=== PATIENT | male | born 1960 | race Caucasian/White ===

== ENCOUNTER 2024-06-27 22:33 | Inpatient (IN) ==
--- NOTE | 2024-06-27 23:30 | DR.SOBA ---
HPI Time Seen Time Seen by Provider: 06/27/24 23:26 Primary Care Physician Primary Care Physician: ERIK CHONG Complaints Chief Complaint Doctors Comments: Patient was discharged from [facility] today with COPD exacerbation. They came okay because they stated that he was not getting better and he is still having shortness of breath and was still w heezing. Chief Complaint:: PT AMBULATORY IN ED WITH C/O SHORTNESS OF BREATH X 3 WEEKS. PT STATES HE JUST GOT OUT THE HOSPITAL IN [place] TODAY. STATES HE HAS GOTTEN WORSE SINCE GETTING HOME. WAS DX WITH COPD. COVID-19 Coronavirus risk:travel/contact w/high risk person: No Has patient experienced Coronavirus symptoms: Yes Coronavirus symptoms experienced: Shortness of Breath Source History Provided: Patient and Family Member Mode of Arrival Mode of Arrival: Ambulatory Timing Onset of Chief Complaint: 06/06/24 PMH PMH Past Medical History: Yes Past Medical History: COPD, GERD and Hypertension Past Surgical History: Yes Surgical History: Appendectomy and Ortho Surgery Past Surgical History Comment: RIGHT SHOULDER BACK STIMULATOR Family History History of Family Medical Conditions: Yes Family Medical History: Cancer and Hypertension Social History Does patient currently use any type of tobacco product: No Have you used tobacco products in the last 12 months: No Type of Tobacco Use: None Does any household member use tobacco: No Alcohol Use: None Do you use any recreational Drugs:: No Lives With: Spouse Lives Where: Home Travel Risk Coronavirus risk:travel/contact w/high risk person: No Has patient experienced Coronavirus symptoms: Yes Coronavirus symptoms experienced: Shortness of Breath Infectious screening In the last 2 months have you had wt loss of >10#?: NO Have you had fever, night sweats or hemotysis?: No Have you traveled outside the country in the last 6 months?: No Isolation: Standard ROS Review of Systems Constitutional: Other (shortness of breath) Eyes: No Symptoms Reported ENTM: No Symptoms Reported Respiratoy: Non-Productive Cough and Short of Breath Cardiovascular: No Symptoms Reported Gastrointestinal/Abdominal: No Symptoms Reported Genitourinary: No Symptoms Reported Neurological: No Symptoms Reported Musculoskeletal: No Symptoms Reported Integumentary: No Symptoms Reported Hematologic/Lymphatic: No Symptoms Reported Endocrine: No Symptoms Reported Psychiatric: No Symptoms Reported PE Vital Signs Vitals: Vital Signs Pulse Rate 104 Pulse Rate 100 Pulse Rate 104 Pulse Rate 98 Pulse Rate 98 Pulse Rate 106 Pulse Rate 111 Pulse Rate 100 Pulse Rate 102 Pulse Rate 104 Pulse Rate 103 Pulse Rate 104 Pulse Rate 98 Pulse Rate 100 Pulse Rate 102 Pulse Rate 97 Pulse Rate 102 Pulse Rate 97 Pulse Rate 100 Pulse Rate 98 Pulse Rate 99 Pulse Rate 99 Pulse Rate 100 Pulse Rate 99 Pulse Rate 91 Pulse Rate 101 Pulse Rate 93 Pulse Rate 96 Pulse Rate 97 Pulse Rate 98 Pulse Rate 95 Pulse Rate 100 Pulse Rate 103 Pulse Rate 96 Pulse Rate 96 Pulse Rate 100 Pulse Rate 100 Pulse Rate 96 Pulse Rate 108 Pulse Rate 98 Pulse Rate 95 Pulse Rate 99 Pulse Rate 101 Pulse Rate 97 Pulse Rate 100 Pulse Rate 96 Pulse Rate 101 Pulse Rate 101 Pulse Rate 102 Pulse Rate 101 Pulse Rate 100 Pulse Rate 103 Pulse Rate 103 Pulse Rate 104 Pulse Rate 107 Pulse Rate 108 Pulse Rate 106 Respiratory Rate 25 Respiratory Rate 30 Respiratory Rate 31 Respiratory Rate 32 Respiratory Rate 27 Respiratory Rate 29 Respiratory Rate 26 Respiratory Rate 40 Respiratory Rate 38 Respiratory Rate 42 Respiratory Rate 29 Respiratory Rate 33 Respiratory Rate 32 Respiratory Rate 36 Respiratory Rate 39 Respiratory Rate 39 Respiratory Rate 30 Respiratory Rate 23 Respiratory Rate 22 Respiratory Rate 23 Respiratory Rate 21 Respiratory Rate 21 Respiratory Rate 26 Respiratory Rate 22 Respiratory Rate 23 Respiratory Rate 24 Respiratory Rate 26 Respiratory Rate 30 Respiratory Rate 26 Respiratory Rate 32 Respiratory Rate 34 Respiratory Rate 45 Respiratory Rate 35 Respiratory Rate 32 Respiratory Rate 32 Respiratory Rate 31 Respiratory Rate 29 Respiratory Rate 30 Respiratory Rate 25 Respiratory Rate 30 Respiratory Rate 28 Respiratory Rate 31 Respiratory Rate 35 Respiratory Rate 23 Respiratory Rate 33 Respiratory Rate 26 Respiratory Rate 18 Respiratory Rate 32 Respiratory Rate 26 Respiratory Rate 28 Respiratory Rate 29 Respiratory Rate 30 Respiratory Rate 21 Respiratory Rate 22 Blood Pressure [Left Arm] 156/72 Blood Pressure [Left Arm] 196/88 Blood Pressure 139/68 Blood Pressure 135/67 Blood Pressure 123/68 Blood Pressure 138/80 Blood Pressure 156/72 Blood Pressure 156/72 Blood Pressure 169/84 Blood Pressure 152/74 Blood Pressure 153/72 Blood Pressure 150/71 Blood Pressure 151/72 Blood Pressure 157/73 Blood Pressure 154/73 Blood Pressure 149/72 Blood Pressure 136/66 Blood Pressure 160/72 Blood Pressure 163/87 Blood Pressure 156/78 Blood Pressure 158/84 Blood Pressure 163/77 Blood Pressure 156/72 Blood Pressure 156/72 Blood Pressure 196/88 Blood Pressure 222/102 Blood Pressure 222/102 Blood Pressure 210/88 Blood Pressure 216/98 Blood Pressure 211/93 Blood Pressure 207/106 Blood Pressure 196/87 Blood Pressure 196/87 Blood Pressure 215/92 Blood Pressure 200/88 Blood Pressure 217/99 Blood Pressure 217/99 O2 Sat by Pulse Oximetry 96 O2 Sat by Pulse Oximetry 96 O2 Sat by Pulse Oximetry 96 O2 Sat by Pulse Oximetry 98 O2 Sat by Pulse Oximetry 97 O2 Sat by Pulse Oximetry 96 O2 Sat by Pulse Oximetry 97 O2 Sat by Pulse Oximetry 97 O2 Sat by Pulse Oximetry 97 O2 Sat by Pulse Oximetry 97 O2 Sat by Pulse Oximetry 98 O2 Sat by Pulse Oximetry 99 O2 Sat by Pulse Oximetry 99 O2 Sat by Pulse Oximetry 99 O2 Sat by Pulse Oximetry 99 O2 Sat by Pulse Oximetry 99 O2 Sat by Pulse Oximetry 100 O2 Sat by Pulse Oximetry 99 O2 Sat by Pulse Oximetry 100 O2 Sat by Pulse Oximetry 100 O2 Sat by Pulse Oximetry 99 O2 Sat by Pulse Oximetry 98 O2 Sat by Pulse Oximetry 98 O2 Sat by Pulse Oximetry 99 O2 Sat by Pulse Oximetry 98 O2 Sat by Pulse Oximetry 98 O2 Sat by Pulse Oximetry 98 O2 Sat by Pulse Oximetry 97 O2 Sat by Pulse Oximetry 97 O2 Sat by Pulse Oximetry 97 O2 Sat by Pulse Oximetry 97 O2 Sat by Pulse Oximetry 97 O2 Sat by Pulse Oximetry 94 O2 Sat by Pulse Oximetry 97 O2 Sat by Pulse Oximetry 95 O2 Sat by Pulse Oximetry 99 O2 Sat by Pulse Oximetry 97 O2 Sat by Pulse Oximetry 96 O2 Sat by Pulse Oximetry 96 O2 Sat by Pulse Oximetry 96 O2 Sat by Pulse Oximetry 94 O2 Sat by Pulse Oximetry 96 General Limitations: Physical Limitation (due to hypoxia when ambulating ) General Appearance: In Distress (mocerate distress) Head Head Exam: Normal Inspection, Atraumatic and Normocephalic Eyes Eye exam: Normal Appearance, PERRL and EOMI ENT ENT Exam: Normal Exam and Normal Oropharynx Neck Neck Exam: Normal Inspection Chest Chest Inspection: Normal Inspection Respiratory Respiratory Exam: Prolonged Expiratory Phase and Other (wheezing and rhonchi) Cardiovascular Cardiovascular Exam: Regular Rate Abdominal Exam Abdominal Exam: Normal Inspection Extremities Extremities Exam: Normal Inspection Back Back Exam: Normal Inspection and Full ROM Neurologic Neurological Exam: Alert, Oriented X3 and CN II-XII Intact Psychiatric Psychiatric Exam: Agitated and Anxious Skin Skin Exam: Warm, Dry and Intact MDM Differential Diagnosis Differential Diagnosis: COPD (exacerbation) and Other (hypoxia) COURSE Treatment Treatment: Initially patient remained somewhat stable on oxygen at 3 to 4 L/min she remained O2 sat of 95% but since she was not sent home on any oxygen from the previous hospital we did try to do a walking oxygen desat test and the patient did desaturate to 89% and his pCO2 was 67. This point ooziness are that the patient need to be on BiPAP so the patient was placed on BiPAP and we continue to monitor patient on the BiPAP and the respiratory therapist adjusted the oxygen and her rate of the BiPAP to blow off more CO2 and to decrease the oxygen. We did call the case management and they stated that the patient could be put in hospital under an acute admission. The patient and patient family was told about the intent to admit and they were agreeable to the admission. I spoke to Dr. Beal about this patient at 0 [phone] and he excepted the patient for admission.Case management management stated the patient could be admitted to acute care. Case management stated that the patient could be admitted to acute care ROR Labs Reviewed Laboratory Results Reviewed?: Yes 06/27/24 23:54 06/27/24 23:54 Laboratory: WBC 12.3 X10^3/uL (3.6-10.0) H 06/27/24 23:54 RBC 3.99 X10^6/uL (4.7-6.0) L 06/27/24 23:54 Hgb 14.0 g/dL (13.5-18.0) 06/27/24 23:54 Hct 42.2 % (42.0-54.0) 06/27/24 23:54 MCV 105.7 fL (80.0-100.0) H 06/27/24 23:54 MCH 35.0 pg (27.0-34.0) H 06/27/24 23:54 MCHC 33.1 g/dL (33.0-35.0) 06/27/24 23:54 RDW 14.7 % (11.6-16.5) 06/27/24 23:54 Plt Count 204 X10^3/uL (150.0-450.0) 06/27/24 23:54 Plt Count Comment Adequate (ADEQUATE) 06/27/24 23:54 MPV 7.6 fL (7.4-11.0) 06/27/24 23:54 Neut % (Auto) 85.5 % (42.0-75.0) H 06/27/24 23:54 Lymph % (Auto) 4.4 % (21.0-51.0) L 06/27/24 23:54 [place] % (Auto) 10.0 % (0.0-13.0) 06/27/24 23:54 Eos % (Auto) 0.0 % (0.9-2.9) L 06/27/24 23:54 Baso % (Auto) 0.1 % (0.2-1.0) L 06/27/24 23:54 Neut # (Auto) 10.5 x10^3/uL (2.2-4.8) H 06/27/24 23:54 Lymph # (Auto) 0.5 X10^3/uL (1.3-2.9) L 06/27/24 23:54 [place] # (Auto) 1.2 x10^3/uL (0.3-0.8) H 06/27/24 23:54 Eos # (Auto) 0.0 x10^3/uL (0.0-0.2) 06/27/24 23:54 Baso # (Auto) 0.0 X10^3/uL (0.0-0.1) 06/27/24 23:54 Absolute Nucleated RBC 0.0 /100WBC 06/27/24 23:54 Plt Morphology Comment Normal (NORMAL) 06/27/24 23:54 RBC Morphology Abnormal (NORMAL) 06/27/24 23:54 Macrocytosis 1+ A 06/27/24 23:54 Sample Site Rr 06/28/24 04:00 ABG pH 7.350 (7.35-7.45) 06/28/24 04:00 ABG pCO2 55.0 mmHg (35.0-45.0) H* 06/28/24 04:00 ABG pO2 116.0 mmHg (80.0-100.0) H 06/28/24 04:00 ABG HCO3 30.4 mmol/L (22-26) H* 06/28/24 04:00 ABG O2 Saturation 98.0 % (90-100) 06/28/24 04:00 ABG Base Excess 3.6 mmol/L (-2.0-2.0) H 06/28/24 04:00 Dennys Test Pos 06/28/24 04:00 A-a Gradient 29.0 mmHg 06/28/24 04:00 FiO2 30.0 06/28/24 04:00 Blood Gas Comments Ailyn well sw 06/28/24 04:00 Sodium 141 mmol/L (136-145) 06/27/24 23:54 Corrected Sodium 142 mmol/L (136-145) 06/27/24 23:54 Potassium 3.6 mmol/L (3.5-5.1) 06/27/24 23:54 Chloride 101 mmol/L (98-107) 06/27/24 23:54 Carbon Dioxide 32.5 mmol/L (21-32) H 06/27/24 23:54 BUN 26 mg/dL (7-18) H 06/27/24 23:54 Creatinine 0.97 mg/dL (0.70-1.30) 06/27/24 23:54 Est GFR (MDRD) Af Amer > 60 (>60) 06/27/24 23:54 Est GFR (MDRD) Non-Af > 60 (>60) 06/27/24 23:54 Glucose 155 mg/dL (65-99) H 06/27/24 23:54 Calcium 9.1 mg/dL (8.5-10.1) 06/27/24 23:54 Corrected Calcium TNP 06/27/24 23:54 Total Bilirubin 0.40 mg/dL (0.2-1.0) 06/27/24 23:54 AST 58 Units/L (15-37) H 06/27/24 23:54 ALT 320 Units/L (12-78) H 06/27/24 23:54 Alkaline Phosphatase 129 Units/L (46-116) H 06/27/24 23:54 B-Natriuretic Peptide 50.8 pg/mL (0-79) 06/27/24 23:54 Total Protein 7.3 g/dL (6.4-8.2) 06/27/24 23:54 Albumin 3.9 g/dL (3.4-5.0) 06/27/24 23:54 Globulin 3.4 g/dL (2.5-4.5) 06/27/24 23:54 Albumin/Globulin Ratio 1.1 Ratio (1.1-2.1) 06/27/24 23:54 Opioid Opioid Risk Tool Age (Kenny box if 16-45): No History of Preadolescent Sexual Abuse: No Total: 0 Total Score Risk Category: Low Risk Copyright: Oliver GAGNON predicting aberrant behaviors Discharge Plan Diagnosis Discharge Problem: COPD exacerbation, Acute respiratory failure with hypoxia and hypercarbia Discharge Plan Patient Disposition: 09 ADMITTED INPATIENT Condition: Stable Orders to Discharge Patient Discharge Orders: Transfer (Routine); Ordered 06/28/24 Ordered By: Lonnie Caldwell
[2024-06-27] MEDS: DUONEB 0.5 MG/3 MG (3 mL) NEB ONE (23:49)
[2024-06-28] MEDS: SOLU-Medrol 125 MG VIAL IVP ONE (00:02)
[2024-06-28 00:06] LABS: RED CELL DISTRIBUTION WIDTH 14.7 % (11.6-16.5); WHITE BLOOD COUNT 12.3 X10^3/uL (3.6-10.0)
[2024-06-28 00:14] LABS: ALANINE AMINOTRANSFERASE 320 Units/L (12-78); ALBUMIN 3.9 g/dL (3.4-5.0); ALKALINE PHOSPHATASE 129 Units/L (46-116); ASPARTATE AMINO TRANSFERASE 58 Units/L (15-37); BASOPHILS % (AUTO) 0.1 % (0.2-1.0); BLOOD UREA NITROGEN 26 mg/dL (7-18); CALCIUM 9.1 mg/dL (8.5-10.1); CARBON DIOXIDE 32.5 mmol/L (21-32); CHLORIDE 101 mmol/L (98-107); COR NA(FOR HYPERGLY) 142 mmol/L (136-145); CREATININE 0.97 mg/dL (0.70-1.30); GLUCOSE 155 mg/dL (65-99); HEMATOCRIT 42.2 % (42.0-54.0); LYMPHOCYTES # (AUTO) 0.5 X10^3/uL (1.3-2.9); LYMPHOCYTES % (AUTO) 4.4 % (21.0-51.0); MEAN CORPUSCULAR HGB CONC 33.1 g/dL (33.0-35.0); MEAN CORPUSCULAR VOLUME 105.7 fL (80.0-100.0); MEAN PLATELET VOLUME 7.6 fL (7.4-11.0); MONOCYTES # (AUTO) 1.2 x10^3/uL (0.3-0.8); NEUTROPHILS # (AUTO) 10.5 x10^3/uL (2.2-4.8); NEUTROPHILS % (AUTO) 85.5 % (42.0-75.0); PLATELET COUNT 204 X10^3/uL (150.0-450.0); POTASSIUM 3.6 mmol/L (3.5-5.1); RED BLOOD COUNT 3.99 X10^6/uL (4.7-6.0); SODIUM 141 mmol/L (136-145); TOTAL PROTEIN 7.3 g/dL (6.4-8.2); eGFR NON BLACK RACES > 60 (>60)
--- NOTE | 2024-06-28 00:17 | RAD ---
PROCEDURE: Chest X-ray 1 View.HISTORY: SOB; C/O SHORTNESS OF BREATH X 3 WEEKS HX: COPD .TECHNIQUE: AP view.COMPARISON: 02/25/2024.TECHNICAL QUALITY: Limited inspiration.FINDINGS:Normal size heart.Mediastinum and hilar regions show no masses or lymphadenopathy.Normal central vascularity.No pulmonary consolidation, masses, pleural fluid, or pneumothorax.Right shoulder arthroplasty.IMPRESSION:No evidence of active cardiopulmonary disease.THIS IS AN ELECTRONICALLY VERIFIED FINAL REPORT06/28/2024 12:13 AM - Electronically signed by Sawyer Mccabe MD
[2024-06-28 00:21] LABS: PLATELET MORPHOLOGY COMMENT NORMAL (NORMAL)
[2024-06-28 01:55] LABS: ABG ALLEN TEST POS; ABG HCO3 31.5 mmol/L (22-26)
[2024-06-28] MEDS: APRESOLINE INJ 20 MG VIAL IVP ONE (03:21)
[2024-06-28] MEDS: ZOFRAN INJ 4 MG VIAL IVP ONE (03:43)
[2024-06-28 04:17] LABS: ABG BASE EXCESS 3.6 mmol/L (-2.0-2.0)
[2024-06-28 04:19] LABS: ABG ALLEN TEST POS; ABG HCO3 30.4 mmol/L (22-26)
[2024-06-28] MEDS: PULMICORT NEB TX 0.5 MG NEB SCH (09:14)
[2024-06-28] MEDS: CALAN SR 120 MG PO SCH (10:10)
[2024-06-28] MEDS: PROTONIX TAB 40 MG PO SCH (10:10)
[2024-06-28] MEDS: LINZESS PO SCH (10:11)
[2024-06-28] MEDS: APRESOLINE TAB 25 MG PO SCH (10:11)
[2024-06-28] MEDS: NS 1,000 ML IV 1,000 ML IV SCH (10:12)
--- NOTE | 2024-06-28 10:47 | EKG ---
Test Reason : sob Blood Pressure : */* mmHG Vent. Rate : 97 BPM Atrial Rate : 97 BPM P-R Int : 132 ms QRS Dur : 96 ms QT Int : 320 ms P-R-T Axes : 42 24 90 degrees QTc Int : 406 ms Sinus rhythm with premature atrial complexes Nonspecific T wave abnormality Abnormal ECG No previous ECGs available Confirmed by Kuldeep Pierce MD ([id number]) on 06/28/2024 8:02:35 PM Referred By: Confirmed By: Kuldeep Pierce MD
--- NOTE | 2024-06-28 12:05 | DR.H&P ---
H&P History & Physical for Day of: H&P Date: 06/28/24 Chief Complaint Chief Complaint: SOB History of Present Illness History of Present Illness: PT IS 63 WM, ER ADMISSION WITH INCREASED SOB. PT HAS A PMH OF ADVANCED RHEUMATOID ARTHRITIS. PT DENIES ANY CARDIAC BYPASS OR STENTS. PT CO INCREASE SOB AND NEWLY DX WITH COPD, PT HAS NO HISTORY OF SMOKING. PT HAD ABG ON ADMISSION, WAS PLACED ON BIPAP. ADMITTED FOR EVALUATION AND TREATMENT OF ACUTE SOB, RESP DISTRESS Past Medical History Past Medical History: COPD, GERD and Hypertension Past Surgical History Surgical History: Appendectomy, Joint Replacement and Ortho Surgery Family History Family Medical History: Cancer Social History Does patient currently use any type of tobacco product: No Have you used tobacco products in the last 12 months: No Type of Tobacco Use: None Does any household member use tobacco: No Alcohol Use: None Drug Use: Prescription Drugs Medications Home Medications: Home Medications Medication Instructions Recorded Confirmed Type albuterol sulfate 90 mcg/actuation 2 inh inhalation Q4H PRN 06/27/24 06/27/24 History aerosol inhaler hydralazine 25 mg tablet 25 mg PO BID 06/27/24 06/27/24 History hydrocodone 7.5 mg-acetaminophen 1 tab PO TID PRN 06/27/24 06/27/24 History 325 mg tablet linaclotide 290 mcg capsule 290 mcg PO QDAY 06/27/24 06/27/24 History (Linzess) mometasone 50 mcg/actuation nasal 2 spray intranasal QDAY 06/27/24 06/27/24 History spray mometasone-formoterol HFA 200 2 puff inhalation BID 06/27/24 06/27/24 History mcg-5 mcg/actuation aerosol inhaler (Dulera) nortriptyline 50 mg capsule 50 mg PO BID 06/27/24 06/27/24 History pantoprazole 40 mg tablet,delayed 40 mg PO QDAY 06/27/24 06/27/24 History release pramipexole 0.5 mg tablet 0.5 mg PO QDAY 06/27/24 06/27/24 History pramipexole 0.5 mg tablet 0.5 mg PO QDAY 06/27/24 06/27/24 History temazepam 30 mg capsule 30 mg PO QPM PRN 06/27/24 06/27/24 History tiotropium bromide 2.5 2 puff inhalation QDAY 06/27/24 06/27/24 History mcg/actuation mist for inhalation (Spiriva Respimat) verapamil 120 mg 24 hr 120 mg PO QDAY 06/27/24 06/27/24 History capsule,extended release Allergies Allergies Allergy/AdvReac Type Severity Reaction Status Date / Time zolpidem [From Ambien] Allergy Verified 06/27/24 23:04 Labs 06/27/24 23:54 06/27/24 23:54 Labs: Laboratory WBC 12.3 X10^3/uL (3.6-10.0) H 06/27/24 23:54 RBC 3.99 X10^6/uL (4.7-6.0) L 06/27/24 23:54 Hgb 14.0 g/dL (13.5-18.0) 06/27/24 23:54 Hct 42.2 % (42.0-54.0) 06/27/24 23:54 MCV 105.7 fL (80.0-100.0) H 06/27/24 23:54 MCH 35.0 pg (27.0-34.0) H 06/27/24 23:54 MCHC 33.1 g/dL (33.0-35.0) 06/27/24 23:54 RDW 14.7 % (11.6-16.5) 06/27/24 23:54 Plt Count 204 X10^3/uL (150.0-450.0) 06/27/24 23:54 Plt Count Comment Adequate (ADEQUATE) 06/27/24 23:54 MPV 7.6 fL (7.4-11.0) 06/27/24 23:54 Neut % (Auto) 85.5 % (42.0-75.0) H 06/27/24 23:54 Lymph % (Auto) 4.4 % (21.0-51.0) L 06/27/24 23:54 [place] % (Auto) 10.0 % (0.0-13.0) 06/27/24 23:54 Eos % (Auto) 0.0 % (0.9-2.9) L 06/27/24 23:54 Baso % (Auto) 0.1 % (0.2-1.0) L 06/27/24 23:54 Neut # (Auto) 10.5 x10^3/uL (2.2-4.8) H 06/27/24 23:54 Lymph # (Auto) 0.5 X10^3/uL (1.3-2.9) L 06/27/24 23:54 [place] # (Auto) 1.2 x10^3/uL (0.3-0.8) H 06/27/24 23:54 Eos # (Auto) 0.0 x10^3/uL (0.0-0.2) 06/27/24 23:54 Baso # (Auto) 0.0 X10^3/uL (0.0-0.1) 06/27/24 23:54 Absolute Nucleated RBC 0.0 /100WBC 06/27/24 23:54 Plt Morphology Comment Normal (NORMAL) 06/27/24 23:54 RBC Morphology Abnormal (NORMAL) 06/27/24 23:54 Macrocytosis 1+ A 06/27/24 23:54 Sample Site Rr 06/28/24 04:00 ABG pH 7.350 (7.35-7.45) 06/28/24 04:00 ABG pCO2 55.0 mmHg (35.0-45.0) H* 06/28/24 04:00 ABG pO2 116.0 mmHg (80.0-100.0) H 06/28/24 04:00 ABG HCO3 30.4 mmol/L (22-26) H* 06/28/24 04:00 ABG O2 Saturation 98.0 % (90-100) 06/28/24 04:00 ABG Base Excess 3.6 mmol/L (-2.0-2.0) H 06/28/24 04:00 Dennys Test Pos 06/28/24 04:00 A-a Gradient 29.0 mmHg 06/28/24 04:00 FiO2 30.0 06/28/24 04:00 Blood Gas Comments Ailyn well 06/28/24 04:00 Sodium 141 mmol/L (136-145) 06/27/24 23:54 Corrected Sodium 142 mmol/L (136-145) 06/27/24 23:54 Potassium 3.6 mmol/L (3.5-5.1) 06/27/24 23:54 Chloride 101 mmol/L (98-107) 06/27/24 23:54 Carbon Dioxide 32.5 mmol/L (21-32) H 06/27/24 23:54 BUN 26 mg/dL (7-18) H 06/27/24 23:54 Creatinine 0.97 mg/dL (0.70-1.30) 06/27/24 23:54 Est GFR (MDRD) Af Amer > 60 (>60) 06/27/24 23:54 Est GFR (MDRD) Non-Af > 60 (>60) 06/27/24 23:54 Glucose 155 mg/dL (65-99) H 06/27/24 23:54 Calcium 9.1 mg/dL (8.5-10.1) 06/27/24 23:54 Corrected Calcium TNP 06/27/24 23:54 Total Bilirubin 0.40 mg/dL (0.2-1.0) 06/27/24 23:54 AST 58 Units/L (15-37) H 06/27/24 23:54 ALT 320 Units/L (12-78) H 06/27/24 23:54 Alkaline Phosphatase 129 Units/L (46-116) H 06/27/24 23:54 Creatine Kinase 30 Units/L (39-308) L 06/28/24 10:56 Troponin I High Sens 15.1 ng/L (4.0-60.0) 06/28/24 10:56 B-Natriuretic Peptide 50.8 pg/mL (0-79) 06/27/24 23:54 Total Protein 7.3 g/dL (6.4-8.2) 06/27/24 23:54 Albumin 3.9 g/dL (3.4-5.0) 06/27/24 23:54 Globulin 3.4 g/dL (2.5-4.5) 06/27/24 23:54 Albumin/Globulin Ratio 1.1 Ratio (1.1-2.1) 06/27/24 23:54 Review of Systems Constitutional: Weakness Eyes: No Symptoms Reported ENT: Nose Discharge Respiratory: Shortness of Breath and SOB with Excertion Cardiovascular: No Symptoms Reported Gastrointestinal: No Symptoms Reported Genitourinary: No Symptoms Reported Musculoskeletal: Shoulder Pain, Back Pain and Hand Pain Skin: No Symptoms Reported Neurological: Weakness Physical Exam Vital Signs: Vital Signs Temperature 98.1 F Pulse Rate [Right] 99 Pulse Rate 101 Pulse Rate 101 Pulse Rate 101 Pulse Rate 99 Pulse Rate 99 Pulse Rate 104 Pulse Rate 100 Pulse Rate 104 Pulse Rate 98 Pulse Rate 98 Pulse Rate 106 Pulse Rate 111 Pulse Rate 100 Pulse Rate 102 Pulse Rate 104 Pulse Rate 103 Pulse Rate 104 Pulse Rate 98 Pulse Rate 100 Pulse Rate 102 Pulse Rate 97 Pulse Rate 102 Pulse Rate 97 Pulse Rate 100 Pulse Rate 98 Pulse Rate 99 Pulse Rate 99 Respiratory Rate 17 Respiratory Rate 28 Respiratory Rate 35 Respiratory Rate 45 Respiratory Rate 25 Respiratory Rate 30 Respiratory Rate 31 Respiratory Rate 32 Respiratory Rate 27 Respiratory Rate 29 Respiratory Rate 26 Respiratory Rate 40 Respiratory Rate 38 Respiratory Rate 42 Respiratory Rate 29 Respiratory Rate 33 Respiratory Rate 32 Respiratory Rate 36 Respiratory Rate 39 Respiratory Rate 39 Respiratory Rate 30 Respiratory Rate 23 Respiratory Rate 22 Respiratory Rate 23 Respiratory Rate 21 Respiratory Rate 21 Respiratory Rate 26 Blood Pressure [Left Arm] 167/81 Blood Pressure [Left Arm] 156/72 Blood Pressure 143/68 Blood Pressure 143/70 Blood Pressure 141/65 Blood Pressure 139/68 Blood Pressure 135/67 Blood Pressure 123/68 Blood Pressure 138/80 Blood Pressure 156/72 Blood Pressure 156/72 Blood Pressure 169/84 Blood Pressure 152/74 Blood Pressure 153/72 Blood Pressure 150/71 Blood Pressure 151/72 Blood Pressure 157/73 Blood Pressure 154/73 Blood Pressure 149/72 Blood Pressure 136/66 Blood Pressure 160/72 Blood Pressure 163/87 Blood Pressure 156/78 O2 Sat by Pulse Oximetry 96 O2 Sat by Pulse Oximetry 96 O2 Sat by Pulse Oximetry 96 O2 Sat by Pulse Oximetry 96 O2 Sat by Pulse Oximetry 96 O2 Sat by Pulse Oximetry 98 O2 Sat by Pulse Oximetry 97 O2 Sat by Pulse Oximetry 96 O2 Sat by Pulse Oximetry 97 O2 Sat by Pulse Oximetry 97 O2 Sat by Pulse Oximetry 97 O2 Sat by Pulse Oximetry 97 O2 Sat by Pulse Oximetry 98 O2 Sat by Pulse Oximetry 99 O2 Sat by Pulse Oximetry 99 O2 Sat by Pulse Oximetry 99 O2 Sat by Pulse Oximetry 99 Oriented: Normal Eyes: Normal Ear: Normal Nose: Normal Throat: Dry Respiratory: RLL Diminished and LLL Diminished Cardiovascular: Tachycardia; negative Edema Auscultation: Bowel Sounds: Normal Palpation: Normal Tenderness: Normal Skin: Decreased Turgur Musculoskeletal: Swelling, Motor Deficit and Sensory Deficit Psychiatric: Normal Mood Description: Calm Affect: Normal Speech Pattern: Clear and Appropriate Assessment/Plan (1) COPD exacerbation: Status: Acute Plan: ADMIT, IV SOLU MEDROL IV ATBX, CXR ON ADMISSION RESP CONSULT, CARDIAC MONITORING SUPPLEMENTAL O2 VERIFY HOME MEDICATIONS, CE, ECHO (2) Acute respiratory failure with hypoxia and hypercarbia: Status: Acute (3) Rheumatoid arthritis: Status: Acute
[2024-06-28] MEDS: DUONEB 0.5 MG/3 MG (3 mL) NEB SCH (13:02)
[2024-06-28] MEDS: SOLU-Medrol 40 MG VIAL IVP SCH (14:04)
[2024-06-28] MEDS: PULMICORT NEB TX 0.5 MG NEB ONE (15:17)
[2024-06-28] MEDS: NORCO 7.5/325 MG TAB PO PRN (16:26)
[2024-06-28] MEDS: RESTORIL CAP 15 MG PO PRN (22:59)
[2024-06-29 04:58] LABS: HEMOGLOBIN 13.6 g/dL (13.5-18.0); WHITE BLOOD COUNT 4.8 X10^3/uL (3.6-10.0)
[2024-06-29 05:06] LABS: BASOPHILS % (AUTO) 0.1 % (0.2-1.0); HEMATOCRIT 41.4 % (42.0-54.0); LYMPHOCYTES # (AUTO) 0.2 X10^3/uL (1.3-2.9); LYMPHOCYTES % (AUTO) 4.6 % (21.0-51.0); MEAN CORPUSCULAR HGB CONC 32.9 g/dL (33.0-35.0); MEAN CORPUSCULAR VOLUME 106.3 fL (80.0-100.0); MEAN PLATELET VOLUME 7.9 fL (7.4-11.0); MONOCYTES # (AUTO) 0.2 x10^3/uL (0.3-0.8); MONOCYTES % (AUTO) 4.6 % (0.0-13.0); NEUTROPHILS # (AUTO) 4.3 x10^3/uL (2.2-4.8); NEUTROPHILS % (AUTO) 90.7 % (42.0-75.0); PLATELET COUNT 132 X10^3/uL (150.0-450.0); RED BLOOD COUNT 3.89 X10^6/uL (4.7-6.0); RED CELL DISTRIBUTION WIDTH 14.9 % (11.6-16.5)
[2024-06-29 05:10] LABS: ALANINE AMINOTRANSFERASE 217 Units/L (12-78); ALBUMIN 3.5 g/dL (3.4-5.0); ALKALINE PHOSPHATASE 106 Units/L (46-116); ASPARTATE AMINO TRANSFERASE 24 Units/L (15-37); BLOOD UREA NITROGEN 27 mg/dL (7-18); CALCIUM 8.8 mg/dL (8.5-10.1); CARBON DIOXIDE 31.9 mmol/L (21-32); CHLORIDE 104 mmol/L (98-107); COR NA(FOR HYPERGLY) 142 mmol/L (136-145); CREATININE 0.65 mg/dL (0.70-1.30); GLUCOSE 127 mg/dL (65-99); POTASSIUM 4.6 mmol/L (3.5-5.1); SODIUM 141 mmol/L (136-145); TOTAL PROTEIN 6.8 g/dL (6.4-8.2); eGFR NON BLACK RACES > 60 (>60)
[2024-06-29 05:43] LABS: PLATELET MORPHOLOGY COMMENT NORMAL (NORMAL)
[2024-06-29 05:54] LABS: ABG BASE EXCESS 4.5 mmol/L (-2.0-2.0)
[2024-06-29 05:55] LABS: ABG ALLEN TEST POS; ABG HCO3 34.8 mmol/L (22-26)
[2024-06-29 07:36] LABS: ABG HCO3 35.2 mmol/L (22-26)
[2024-06-29] MEDS: ROBITUSSIN DM PO SCH (08:11)
[2024-06-29] MEDS: MIRAPEX TAB 0.25 MG PO SCH (08:12)
[2024-06-29] MEDS: ROCEPHIN VIAL 1 GRAM 1 G in NS 100 ML IV 100 ML IV SCH (08:12)
--- NOTE | 2024-06-29 09:03 | RAD ---
EXAM: CHEST HISTORY: SOB; COMPARISON: None. TECHNIQUE: Frontal view of the chest was submitted for interpretation. FINDINGS: The cardiomediastinal silhouette is within normal limits. Lungs show no focal consolidation, pneumot horax, or pleural fluid. IMPRESSION: No acute cardiopulmonary process. THIS IS AN ELECTRONICALLY VERIFIED FINAL REPORT 06/29/2024 9:00 AM - Electronically signed by Keegan Dudley MD
--- NOTE | 2024-06-29 15:40 | RAD ---
EXAM:CHESTHISTORY:shortness of breath;COMPARISON:June 29, 2024.TECHNIQUE:Frontal view of the chest was submitted for interpretation.FINDINGS:The cardiomediastinal silhouette is stable in size. Lungs show no focal consolidation. Low lung volumes noted.IMPRESSION:Stable cardiomegaly. Low lung volumes.THIS IS AN ELECTRONICALLY VERIFIED FINAL REPORT06/29/2024 3:36 PM - Electronically signed by Keegan Dudley MD
[2024-06-29 17:10] LABS: ABG BASE EXCESS 5.3 mmol/L (-2.0-2.0)
[2024-06-29 17:11] LABS: ABG HCO3 36.3 mmol/L (22-26)
[2024-06-29 18:52] LABS: ABG BASE EXCESS 3.6 mmol/L (-2.0-2.0)
[2024-06-29 18:54] LABS: ABG ALLEN TEST POS; ABG HCO3 34.7 mmol/L (22-26)
[2024-06-29 19:08] VITALS: BMI 23.7
[2024-06-29] MEDS ORDERED: DUKE'S Magic Mouthwash (nyst/dex/ben/doxyc) MT PRN (19:55)
[2024-06-29] MEDS: DIPRIVAN PREMIX 1 GRAM IV 1,000 MG/100 ML VIAL IV PRN (20:25)
--- NOTE | 2024-06-29 21:13 | DR.UPDATE ---
H&P Update Prescription drug monitoring program results: PDMP was not reviewed H&P Reviewed: Yes Any changes to H&P?: No Patient was examined?: Yes Vital Signs: Temp Pulse Pulse Resp BP BP Pulse Ox 06/29/24 19:26 98.6 F 89 17 176/81 99 06/29/24 17:19 06/29/24 17:19 06/29/24 17:34 82 99 06/29/24 16:00 98.2 F 75 18 142/70 98 06/29/24 13:16 74 98 06/29/24 11:30 97.5 F L 74 18 145/70 99 06/29/24 08:48 06/29/24 08:47 96 H 99 06/29/24 08:43 06/29/24 07:46 97.8 F 92 H 18 174/83 95 06/29/24 07:00 06/29/24 05:45 06/29/24 05:45 06/29/24 04:00 98.4 F 86 16 172/82 96 06/29/24 00:00 98.3 F 93 H 24 167/75 96 06/28/24 19:00 06/28/24 20:03 06/28/24 20:03 94 H 94 L 06/28/24 20:03 06/28/24 20:00 98.6 F 93 H 20 179/79 96 06/28/24 16:00 98.2 F 87 19 153/70 96 06/28/24 12:00 97.8 F 79 17 137/62 100 06/28/24 09:17 06/28/24 09:17 06/28/24 07:00 06/28/24 08:00 98.1 F 99 H 17 167/81 96 06/28/24 17:38 18 06/28/24 16:26 18 06/28/24 09:15 101 H 96 06/28/24 08:43 06/28/24 07:10 143/68 06/28/24 07:10 101 H 28 H 06/28/24 07:00 143/70 06/28/24 07:00 101 H 06/28/24 06:50 99 H 35 H 06/28/24 06:50 141/65 06/28/24 06:45 99 H 45 H 06/28/24 06:40 139/68 06/28/24 06:40 104 H 25 H 06/28/24 06:30 135/67 06/28/24 06:30 100 H 30 H 06/28/24 06:20 123/68 06/28/24 06:20 104 H 31 H 06/28/24 06:15 98 H 32 H 06/28/24 06:10 98 H 27 H 06/28/24 06:10 138/80 06/28/24 06:00 156/72 06/28/24 06:00 106 H 29 H 06/28/24 05:51 169/84 06/28/24 05:51 111 H 40 H 06/28/24 05:45 100 H 38 H 96 06/28/24 05:40 152/74 06/28/24 05:40 102 H 42 H 96 06/28/24 06:00 156/72 06/28/24 06:00 26 H 156/72 06/28/24 04:35 06/28/24 05:30 153/72 06/28/24 05:30 104 H 29 H 96 06/28/24 05:20 150/71 06/28/24 05:20 103 H 33 H 98 06/28/24 05:15 104 H 32 H 97 06/28/24 05:10 151/72 06/28/24 05:10 98 H 36 H 96 06/28/24 05:00 100 H 39 H 97 06/28/24 05:00 157/73 06/28/24 04:50 154/73 06/28/24 04:50 102 H 39 H 97 06/28/24 04:45 97 H 30 H 97 06/28/24 04:40 149/72 06/28/24 04:40 102 H 23 97 06/28/24 04:30 136/66 06/28/24 04:30 97 H 22 98 06/28/24 04:20 160/72 06/28/24 04:20 100 H 23 99 06/28/24 04:15 98 H 21 99 06/28/24 04:10 163/87 06/28/24 04:10 99 H 21 99 06/28/24 04:00 156/78 06/28/24 04:00 99 H 26 H 99 06/28/24 03:50 158/84 06/28/24 03:50 100 H 22 99 06/28/24 03:45 99 H 23 100 06/28/24 03:40 163/77 06/28/24 03:40 91 H 24 99 06/28/24 03:31 156/72 06/28/24 03:31 101 H 26 H 100 06/28/24 03:30 93 H 30 H 100 06/28/24 03:22 196/88 06/28/24 03:22 97 H 32 H 98 06/28/24 03:15 98 H 34 H 98 06/28/24 03:01 222/102 06/28/24 03:01 100 H 35 H 98 06/28/24 03:00 103 H 32 H 98 06/28/24 02:45 96 H 32 H 98 06/28/24 02:30 210/88 06/28/24 02:30 96 H 31 H 97 06/28/24 02:15 100 H 29 H 97 06/28/24 03:30 96 H 26 H 156/72 99 06/28/24 02:35 196/88 06/28/24 03:15 95 H 45 H 222/102 99 06/28/24 02:00 06/28/24 02:00 06/28/24 02:01 216/98 06/28/24 02:01 100 H 30 H 97 06/28/24 02:00 96 H 25 H 97 06/28/24 01:58 108 H 97 06/28/24 01:30 98 H 30 H 94 L 06/28/24 01:30 211/93 06/28/24 01:15 95 H 28 H 97 06/28/24 01:01 207/106 06/28/24 01:01 99 H 31 H 06/28/24 01:00 101 H 35 H 06/28/24 00:45 97 H 23 06/28/24 00:31 100 H 33 H 06/28/24 00:31 196/87 06/28/24 00:30 96 H 26 H 06/28/24 00:15 101 H 32 H 06/28/24 00:00 215/92 06/28/24 00:00 102 H 26 H 06/28/24 00:30 101 H 18 196/87 95 06/27/24 23:50 101 H 99 06/27/24 23:45 100 H 28 H 06/27/24 23:31 200/88 06/27/24 23:31 103 H 29 H 97 06/27/24 23:30 103 H 30 H 96 06/27/24 23:15 104 H 21 96 06/27/24 23:00 217/99 06/27/24 23:00 108 H 94 L 06/27/24 22:59 106 H 96 06/27/24 23:05 107 H 22 217/99 96 06/27/24 22:35 98.0 F 111 H 28 H 176/95 81 L O2 Del Method O2 Flow Rate FiO2 06/29/24 19:26 Bi-pap 28 06/29/24 17:19 Bi-pap 32 06/29/24 17:19 32 06/29/24 17:34 06/29/24 16:00 Bi-pap 28 06/29/24 13:16 06/29/24 11:30 Bi-pap 28 06/29/24 08:48 Bi-pap 2 32 06/29/24 08:47 06/29/24 08:43 32 06/29/24 07:46 Bi-pap 24 06/29/24 07:00 Bi-pap 06/29/24 05:45 Bi-pap 24 06/29/24 05:45 24 06/29/24 04:00 Bi-pap 2 06/29/24 00:00 Bi-pap 2 06/28/24 19:00 Bi-pap 06/28/24 20:03 28 06/28/24 20:03 06/28/24 20:03 Bi-pap 28 06/28/24 20:00 Bi-pap 2 06/28/24 16:00 Nasal Cannula 2 06/28/24 12:00 Nasal Cannula 2 06/28/24 09:17 Bi-pap 28 06/28/24 09:17 28 06/28/24 07:00 Bi-pap 06/28/24 08:00 Bi-pap 06/28/24 17:38 06/28/24 16:26 06/28/24 09:15 06/28/24 08:43 Bi-pap 06/28/24 07:10 06/28/24 07:10 06/28/24 07:00 06/28/24 07:00 06/28/24 06:50 06/28/24 06:50 06/28/24 06:45 06/28/24 06:40 06/28/24 06:40 06/28/24 06:30 06/28/24 06:30 06/28/24 06:20 06/28/24 06:20 06/28/24 06:15 06/28/24 06:10 06/28/24 06:10 06/28/24 06:00 06/28/24 06:00 06/28/24 05:51 06/28/24 05:51 06/28/24 05:45 06/28/24 05:40 06/28/24 05:40 06/28/24 06:00 Bi-pap 06/28/24 06:00 Bi-pap 06/28/24 04:35 Bi-pap 06/28/24 05:30 06/28/24 05:30 06/28/24 05:20 06/28/24 05:20 06/28/24 05:15 06/28/24 05:10 06/28/24 05:10 06/28/24 05:00 06/28/24 05:00 06/28/24 04:50 06/28/24 04:50 06/28/24 04:45 06/28/24 04:40 06/28/24 04:40 06/28/24 04:30 06/28/24 04:30 06/28/24 04:20 06/28/24 04:20 06/28/24 04:15 06/28/24 04:10 06/28/24 04:10 06/28/24 04:00 06/28/24 04:00 06/28/24 03:50 06/28/24 03:50 06/28/24 03:45 06/28/24 03:40 06/28/24 03:40 06/28/24 03:31 06/28/24 03:31 06/28/24 03:30 06/28/24 03:22 06/28/24 03:22 06/28/24 03:15 06/28/24 03:01 06/28/24 03:01 06/28/24 03:00 06/28/24 02:45 06/28/24 02:30 06/28/24 02:30 06/28/24 02:15 06/28/24 03:30 Bi-pap 06/28/24 02:35 06/28/24 03:15 Bi-pap 06/28/24 02:00 30 06/28/24 02:00 Bi-pap 30 06/28/24 02:01 06/28/24 02:01 06/28/24 02:00 06/28/24 01:58 06/28/24 01:30 06/28/24 01:30 06/28/24 01:15 06/28/24 01:01 06/28/24 01:01 06/28/24 01:00 06/28/24 00:45 06/28/24 00:31 06/28/24 00:31 06/28/24 00:30 06/28/24 00:15 06/28/24 00:00 06/28/24 00:00 06/28/24 00:30 Room Air 06/27/24 23:50 06/27/24 23:45 06/27/24 23:31 06/27/24 23:31 06/27/24 23:30 06/27/24 23:15 06/27/24 23:00 06/27/24 23:00 06/27/24 22:59 06/27/24 23:05 Room Air 06/27/24 22:35 Room Air Procedures (ALL) - Central Line Placement PCM.CLCO: written consent Time out performed: Yes Patient placed pm monitor/pulse ox: Yes MD prep: mask, gown, gloves, other Centrial line prep: chlorhexidine scrub, sterile drapes applied Local anesthsia used: lidocane 1% Ultrasound used for placement: Yes (right ij id'd via u/s and cannulation vis) Central line lumen ininserted: triple Post procedure: sutured in place, good blood return, all ports aspirated, flushed,capped, sterile dressing applied Post procedure xray: tip oc catheter in good position (appears svc, radiology report pending. 4cm exposed), no pneumothorax seen Patient tolerated procedure: Yes Complications: none - Intubation Time out performed: Yes Sedative: ketamine (ketamine 20mg and propofol 100mg) paralytic: rocuronium (50mg) Laryngoscope: fiber optic video scope, other (glidescope 3, grade 1 view and ett vis through cords.) ET tube size: 8 Tube secured depth: 21 Tube secured location: lips Tube placement confirmation: visualized tube passing through cords, equal breath sounds bilaterally, no breath sounds over epigastrium, comfirmation by capnometer Patient tolerated procedure: Yes Intubation complications: none
--- NOTE | 2024-06-29 21:29 | RAD ---
PROCEDURE: Chest X-ray 1 View.HISTORY: CENTRAL LINE PLACEMENT / INTUBATION TUBE ; .TECHNIQUE: AP portable view.COMPARISON: 06/30/2019.TECHNICAL QUALITY: Satisfactory.FINDINGS:Right internal jugular central venous line tip in the right atrium with the tip 2.5 cm beyond the superior cavoatrial junction. Endotracheal tube tip 4 cm above the ayanna.Heart size upper limits of normal and unchanged.Mediastinum and hilar regions show no masses or lymphadenopathy.Normal central vascularity.No pulmonary consolidation, masses, pleural fluid, or pneumothorax. Unchanged mildly elevated right hemidiaphragm.No acute bony abnormality. Right shoulder arthroplasty.IMPRESSION:1. Good endotracheal tube and right internal jugular central venous line placement.2. Unchanged heart size upper limits of normal.3. Unchanged elevated right hemidiaphragm.THIS IS AN ELECTRONICALLY VERIFIED FINAL REPORT06/29/2024 9:22 PM - Electronically signed by Sawyer Mccabe MD
[2024-06-29] MEDS ORDERED: VERSED IV PREMIX 100 MG/100 ML IV.SOLN IV PRN (21:34)
[2024-06-29] MEDS: VERSED 100 MG in NS 100 ML IV 80 ML IV PRN (22:13)
--- NOTE | 2024-06-29 23:31 | CT ---
PROCEDURE: Ct Chest without IV Contrast. HISTORY: Suspected Infection; . TECHNIQUE: Axial images were performed through the chest without the administration of IV contrast wi th multiplanar reformations . Dose reduction techniques including Automated Exposure Control (AEC) an d adjustment of mA and kV were utilized. COMPARISON: None. TECHNICAL QUALITY: Satisfactory. FINDINGS: Mild atherosclerosis thoracic aorta. Mediastinum and hilar regions show no masses or lymphadenopathy. Endotracheal tube in place. Normal-sized heart with no pericardial fluid. Some patchy consolidation lung bases could be related to pneumonia. No pleural fluid or pulmonary ma sses. Visualized upper abdomen shows retained contrast in the colon from previous contrast administration. No acute bony abnormality. IMPRESSION: 1. Possible mild pneumonia both lower lobes. 2. No other significant abnormality identified. THIS IS AN ELECTRONICALLY VERIFIED FINAL REPORT 06/29/2024 11:28 PM - Electronically signed by Sawyer Mccabe MD
--- NOTE | 2024-06-29 23:31 | CT ---
EXAM: BRAIN W/O CON HISTORY: Suspected Infection; COMPARISON: None. TECHNIQUE: Axial non-contrast images of the head were obtained with coronal and sagittal reformats provided. Radiation dose: 983.34 mGy-cm total DLP FINDINGS: No abnormal areas of acute attenuation in the brain parenchyma. Olvera-white differentiation remains intact. No intracranial, extra-axial, fluid collection. No hemorrhage. Periventricular chronic microvascular disease. No mass, mass effect or midline shift. Age related brain parenchymal global atrophy. No ventriculomegaly. No acute fracture. Sinuses are well aerated. Mastoid air cells are well aerated. Globes and intra-orbital contents are unremarkable. Endotracheal tube in place. IMPRESSION: No acute intracranial abnormality identified. THIS IS AN ELECTRONICALLY VERIFIED FINAL REPORT 06/29/2024 11:28 PM - Electronically signed by Janes Dewey MD
[2024-06-30] MEDS: LUBIFRESH PM EYE OINTMENT AFFEYE SCH (00:39)
[2024-06-30] MEDS: SOLU-Medrol 40 MG VIAL IVP SCH (00:40)
[2024-06-30] MEDS: ZOSYN VIAL 4.5 GRAMS 4.5 G in NS 100 ML IV 100 ML IV SCH (00:41)
[2024-06-30 05:22] LABS: ABG BASE EXCESS 8.6 mmol/L (-2.0-2.0); ABG HCO3 29.1 mmol/L (22-26)
[2024-06-30 05:24] LABS: BASOPHILS % (AUTO) 0.1 % (0.2-1.0); HEMATOCRIT 37.9 % (42.0-54.0); HEMOGLOBIN 12.6 g/dL (13.5-18.0); LYMPHOCYTES # (AUTO) 0.3 X10^3/uL (1.3-2.9); LYMPHOCYTES % (AUTO) 5.5 % (21.0-51.0); MEAN CORPUSCULAR HEMOGLOBIN 34.9 pg (27.0-34.0); MEAN CORPUSCULAR HGB CONC 33.1 g/dL (33.0-35.0); MEAN CORPUSCULAR VOLUME 105.3 fL (80.0-100.0); MEAN PLATELET VOLUME 7.8 fL (7.4-11.0); MONOCYTES # (AUTO) 0.3 x10^3/uL (0.3-0.8); MONOCYTES % (AUTO) 6.4 % (0.0-13.0); NEUTROPHILS # (AUTO) 4.7 x10^3/uL (2.2-4.8); PLATELET COUNT 133 X10^3/uL (150.0-450.0); RED CELL DISTRIBUTION WIDTH 14.2 % (11.6-16.5); WHITE BLOOD COUNT 5.3 X10^3/uL (3.6-10.0)
[2024-06-30 05:37] LABS: ALANINE AMINOTRANSFERASE 150 Units/L (12-78); ALBUMIN 3.2 g/dL (3.4-5.0); ALKALINE PHOSPHATASE 94 Units/L (46-116); ASPARTATE AMINO TRANSFERASE 21 Units/L (15-37); BLOOD UREA NITROGEN 29 mg/dL (7-18); CALCIUM 8.8 mg/dL (8.5-10.1); CARBON DIOXIDE 29.2 mmol/L (21-32); CHLORIDE 104 mmol/L (98-107); COR CA(FOR HYPOALB) 9.4 mg/dL (8.5-10.1); CREATININE 0.75 mg/dL (0.70-1.30); GLUCOSE 96 mg/dL (65-99); MAGNESIUM 2.1 mg/dL (2.0-2.9); POTASSIUM 3.2 mmol/L (3.5-5.1); SODIUM 141 mmol/L (136-145); TOTAL PROTEIN 5.9 g/dL (6.4-8.2); eGFR NON BLACK RACES > 60 (>60)
[2024-06-30 06:00] LABS: PLATELET MORPHOLOGY COMMENT NORMAL (NORMAL)
[2024-06-30] MEDS: NORMODYNE INJ 20 MG VIAL IV PRN (06:55)
[2024-06-30] MEDS: DIPRIVAN VIAL 20 ML ONE (07:31)
[2024-06-30] MEDS: OMNIPAQUE 350 mg/mL 100 mL BTL 100 ML ONE ×2 (07:31)
[2024-06-30] MEDS: NORMODYNE INJ 20 MG VIAL ONE (07:32)
[2024-06-30] MEDS: PROTONIX INJ 40 MG VIAL IVP SCH (08:25)
[2024-06-30] MEDS: APRESOLINE INJ 20 MG VIAL IVP ONE (08:26)
[2024-06-30] MEDS: PROTONIX INJ 40 MG VIAL ONE (08:49)
[2024-06-30] MEDS ORDERED: CONSULT PHARMACY - POTASSIUM & MAGNESIUM XX SCH (09:00)
[2024-06-30] MEDS ORDERED: SOLU-Medrol 40 MG VIAL IVP SCH (09:00)
[2024-06-30 09:43] VITALS: O2SAT 99
--- NOTE | 2024-06-30 10:39 | EKG ---
Test Reason : protocol for HTN Blood Pressure : */* mmHG Vent. Rate : 77 BPM Atrial Rate : 77 BPM P-R Int : 124 ms QRS Dur : 80 ms QT Int : 392 ms P-R-T Axes : 30 28 33 degrees QTc Int : 443 ms Sinus rhythm with premature atrial complexes T wave abnormality, consider anterior ischemia Abnormal ECG When compared with ECG of 28-JUN-2024 10:24, T wave inversion now evident in Anterior leads Nonspecific T wave abnormality no longer evident in Lateral leads Confirmed by Kuldeep Pierce MD ([id number]) on 07/01/2024 7:40:48 AM Referred By: Confirmed By: Kuldeep Pierce MD
[2024-06-30] MEDS: NS 1,000 ML IV 1,000 ML with POTASSIUM CHLORIDE INJ 40 MEQ VIAL 40 MEQ IV SCH (11:00)
[2024-06-30] MEDS: APRESOLINE INJ 20 MG VIAL IVP PRN (11:01)
[2024-06-30] MEDS: ZITHROMAX INJ 500 MG VIAL 500 MG in NS 250 ML IV 250 ML IV SCH (11:11)
[2024-06-30] MEDS: NS 250 ML IV 25 ML IV PRN (11:11)
[2024-06-30] MEDS: TYLENOL SUPP 650 MG PR ONE (11:44)
[2024-06-30] MEDS: TYLENOL SUPP 650 MG ONE (11:49)
[2024-06-30 12:25] VITALS: RESP 16
[2024-06-30 12:54] VITALS: TEMP 100.7
[2024-06-30] MEDS ORDERED: STERILE WATER IRRIGATION IR ONE (13:16)
[2024-06-30 13:56] VITALS: BP 172/83; PULSE 96
[2024-06-30] MEDS ORDERED: SOLU-Medrol 125 MG VIAL IVP SCH (14:00)
== END 2024-06-30 13:59 | disposition short-term general hospital (02) | DRG 208 ==
LOC: ER 22:33 → MED/SURG 06-28 06:42 → ICU 06-29 19:51
PROVIDERS: ADMIT Internal Medicine; ATTEND Internal Medicine
DX: J44.1 Chronic obstructive pulmonary disease with (acute) exacerbation; R79.1 Abnormal coagulation profile; I10 Essential (primary) hypertension; J96.02 Acute respiratory failure with hypercapnia; K21.9 Gastro-esophageal reflux disease without esophagitis; R94.31 Abnormal electrocardiogram [ECG] [EKG]; M06.80 Other specified rheumatoid arthritis, unspecified site; E11.65 Type 2 diabetes mellitus with hyperglycemia; J18.8 Other pneumonia, unspecified organism; J96.01 Acute respiratory failure with hypoxia; I87.2 Venous insufficiency (chronic) (peripheral); R74.8 Abnormal levels of other serum enzymes